=== PATIENT | male | born 1985 | race Caucasian/White ===

== ENCOUNTER → 2018-08-18 | Day surgery (SDC) | payer OTHER, MEDICARE ==
[~2018-08-18] MED LIST: HUMALOG100 UNIT/1 SUBQ; HYDRALAZINE 5050 MG PO; LIPITOR40 MG PO; NORCO 5-325 TA1 EAC1 PO; NORVASC10 MG PO; PROTONIX40 M1 PO; RENAL-VITE TAB0.8 MG PO; TOPROL XL100 MG PO; TOPROL XL25 MG PO
[2018-08-18 06:52] LABS: HEMATOCRIT 34.9 % (42.0-52.0); MCH 31.5 pg (26.0-34.0); MCHC 34.2 g/dL (28.0-37.0); MCV 91.9 fL (80.0-100.0); MPV 8.5 fl. (7.2-11.1); RBC 3.8 mil/uL (4.50-6.00); RDW-CV 15.2 % (10.5-14.5); WBC 13.5 thou/uL (4.0-11.0)
[2018-08-18 06:57] LABS: CALCIUM 8.5 mg/dL (8.5-10.1); CREATININE 5.4 mg/dL (0.6-1.3); POTASSIUM 4.2 mmol/L (3.5-5.1)
[2018-08-18 07:00] LABS: APTT 27.1 Seconds (25.0-31.3); PROTIME 9.8 Seconds (9.20-11.50)
--- NOTE | 2018-08-18 11:14 | EKG ---
[place] [address] ELECTROCARDIOGRAM REPORT Name: DIOGENES ZAMORANO Room: [facility]#: [id number] Admission: 08/18/18 Attend Phys: Bjorn Foster Discharge: Date of : 87 Report #: [id number] THIS REPORT FOR: //name// [facility] Test Date: 2018-08-18 Test Time: 06:52:04 Pat Name: DIOGENES ZAMORANO Department: Room: Gender: M Information Operator: GABINO : 1985 Requested By: Bjorn Foster Order Number: [id number] Jimmy MD: Fletcher Campbell Measurements Intervals Berry Rate: 80 P: 71 MS: 149 QRS: 62 QRSD: 97 T: 42 QT: 379 QTc: 438 Interpretive Statements Sinus rhythm No previous ECG available for comparison Electronically Signed On 08-18-2018 11:14:06 CDT by Fletcher Campbell [email or web address] <ELECTRONICALLY SIGNED> By: Fletcher Campbell MD, [facility] 08/18/18 1114 [id number] Fletcher Campbell MD, FACC /EPI
--- NOTE | 2018-08-23 15:20 | OP ---
[facility] [address] [place] [address] OPERATIVE REPORT Name: LONADIOGENES BILLIE Room: [facility]#: [id number] Admission: 08/18/18 Attend Phys: Bjorn Foster Discharge: Date of : 87 Report #: [id number] THIS REPORT FOR: //name// CC: Ashli Foster DATE OF SERVICE: 08/18/2018 PREOPERATIVE DIAGNOSIS: End-stage renal disease. POSTOPERATIVE DIAGNOSIS: End-stage renal disease. PROCEDURES: 1. Laparoscopic peritoneal dialysis catheter placement. 2. Laparoscopic omentopexy. SURGEON: Bjorn Foster MD. ANESTHESIA: General. ESTIMATED BLOOD LOSS: Minimal. SPECIMEN: None. DESCRIPTION OF PROCEDURE: After informed consent was obtained, the patient was brought to the operating room and placed supine. SCDs were placed and working, preoperative antibiotics were administered, and general anesthesia was induced. The abdomen was prepped and draped in the usual sterile fashion. A 5 mm incision was made in the left upper quadrant. A 5 mm trocar was placed under direct vision. Pneumoperitoneum was established. A left-sided 5 mm port was placed and an 8 mm trocar was placed in the left rectus sheath at about the level of the umbilicus. Catheter was placed through the 8 mm trocar. It was then tunneled to the left side of the abdomen. Omentopexy was performed using a PMI suture passer and 2-0 Vicryl. I tacked the omentum in the right upper quadrant. The ports were then removed. The catheter flushed and arthur easily. It drained easily as well. It was instilled with about 300 mL of heparinized saline, which was left in place. The skin was then closed with 4-0 Monocryl. Incisions were dressed with Steri-Strips and gauze. Sterile dressings were applied. COMPLICATIONS: [place] [address] OPERATIVE REPORT Name: DIOGENES ZAMORANO Room: [facility]#: [id number] Admission: 08/18/18 Attend Phys: Bjorn Foster Discharge: Date of : 87 Report #: [id number] DISPOSITION: The patient was taken to recovery in satisfactory condition. <ELECTRONICALLY SIGNED> By: Bjorn Foster MD 08/23/18 1520 [id number] [id number] Foster MD /isi
== END | disposition home or self-care (01) ==
LOC: M.SUR 06:17
PROVIDERS: Surgery
DX: I12.0 Hypertensive chronic kidney disease with stage 5 chronic kidney disease or end stage renal disease (principal); E10.22 Type 1 diabetes mellitus with diabetic chronic kidney disease; N18.6 End stage renal disease; E10.40 Type 1 diabetes mellitus with diabetic neuropathy, unspecified; E78.5 Hyperlipidemia, unspecified; K21.9 Gastro-esophageal reflux disease without esophagitis; Z98.890 Other specified postprocedural states; Z87.891 Personal history of nicotine dependence; Z79.899 Other long term (current) drug therapy